=== PATIENT | male | born 1990 | race Caucasian/White ===

== ENCOUNTER 2022-04-24 06:08 | Emergency (ER) | payer BC ==
[~2022-04-24] VITALS: Ht 170.2 cm; Wt 90.7 kg
[2022-04-24 06:15] VITALS: BP_SYST 120
[2022-04-24] MEDS ORDERED: ALBMDI INH (06:31)
[2022-04-24 06:32] VITALS: BP_SYST 118
== END 2022-04-24 06:30 | disposition home or self-care (01) ==
LOC: SED 06:08
DX: J06.9 Acute upper respiratory infection, unspecified (principal); Z79.899 Other long term (current) drug therapy
CPT/HCPCS: 99283

== ENCOUNTER 2023-09-28 11:35 | Emergency (ER) | payer BC, MEDICAID ==
[~2023-09-28] VITALS: Ht 157.5 cm; Wt 76.2 kg
[~2023-09-28 11:35] MED LIST: ALBMDI INH
[2023-09-28 12:20] VITALS: BP_SYST 123; PULSE 85; RESP 17; TEMP 98; O2SAT 99
[2023-09-28 13:44] LABS: BILIRUBIN,URINE NEGATIVE (NEGATIVE); BLOOD, URINE 1+ (NEGATIVE); CLARITY/URINE CLEAR (CLEAR); COLOR,URINE YELLOW (YELLOW); GLUCOSE,URINE NEGATIVE (NEGATIVE); KETONES,URINE NEGATIVE (NEGATIVE); LEUKOCYTE ESTERASE ,URINE TRACE (NEGATIVE); NITRITE, URINE NEGATIVE (NEGATIVE); PROTEIN URINE 2+ (NEGATIVE); UROBILINOGEN,URINE 0.2 (0.2-1.0)
[2023-09-28 13:59] LABS: BACTERIA,URINE MODERATE /HPF (None Seen); MUCUS,URINE 1+ /LPF (None Seen); RBC,URINE 0-3 /HPF (0-3)
== END 2023-09-28 17:12 | disposition left against medical advice (07) ==
LOC: SED 11:35
DX: R05.9 Cough, unspecified (principal); M79.10 Myalgia, unspecified site; Z53.21 Procedure and treatment not carried out due to patient leaving prior to being seen by health care provider
CPT/HCPCS: 81000; 81001; 81015; 87086; 99281

== ENCOUNTER 2024-01-05 14:42 | Emergency (ER) | payer BC, MEDICAID ==
[~2024-01-05] VITALS: Ht 172.7 cm; Wt 86.2 kg
[2024-01-05 14:54] VITALS: BP_SYST 117; PULSE 101; RESP 18; TEMP 98.3; O2SAT 95
[2024-01-05 15:38] LABS: BILIRUBIN,URINE NEGATIVE (NEGATIVE); CLARITY/URINE CLEAR (CLEAR); COLOR,URINE YELLOW (YELLOW); GLUCOSE,URINE NEGATIVE (NEGATIVE); KETONES,URINE NEGATIVE (NEGATIVE); LEUKOCYTE ESTERASE ,URINE NEGATIVE (NEGATIVE); NITRITE, URINE NEGATIVE (NEGATIVE); PH,URINE 5.5 (5.0-8.0); PROTEIN URINE TRACE (NEGATIVE); UROBILINOGEN,URINE 0.2 (0.2-1.0)
[2024-01-05 15:39] LABS: BLOOD, URINE TRACE (NEGATIVE)
[2024-01-05 16:07] LABS: BACTERIA,URINE FEW /HPF (None Seen); WBC,URINE 0-3 /HPF (0-3)
[2024-01-05 17:45] LABS: BASOPHILS % (AUTO) 0.4 % (0.0-2.0); EOSINOPHILS % (AUTO) 0.6 % (0.0-4.0); HEMOGLOBIN 15.1 g/dL (14.0-18.0); LYMPHOCYTES # (AUTO) 1.3 K/uL (1.0-5.5); LYMPHOCYTES % (AUTO) 15.2 % (20.5-51.5); MEAN CORPUSCULAR HEMOGLOBIN 32 pg (27-31); MEAN CORPUSCULAR HGB CONC 35 % (32-36); MEAN CORPUSCULAR VOLUME 90 fL (79.0-98.0); MONOCYTES # (AUTO) 0.5 K/uL (0.0-1.0); MONOCYTES % (AUTO) 5.7 % (1.7-9.3); NEUTROPHILS # (AUTO) 6.8 K/uL (1.8-7.7); NEUTROPHILS % (AUTO) 78.1 % (40.0-70.0); PLATELET COUNT (AUTO) 160 K/uL (130-430); RED BLOOD CELL COUNT(AUTO) 4.77 MIL/uL (4.2-6.2); RED CELL DISTRIBUTION WIDTH 12.2 % (9.0-15.0); WHITE BLOOD COUNT (AUTO) 8.7 K/uL (4.8-10.8)
[2024-01-05] MEDS: FAMOTIDINE PF 20 MG/2 ML VIAL IVP ONE (18:00)
[2024-01-05] MEDS: ONDANSETRON HCL 4 MG/2 ML VIAL IVP ONE (18:00)
[2024-01-05] MEDS: NACL 0.9% 1,000 ML IV ONE (18:00)
[2024-01-05 18:07] LABS: ALBUMIN 4.2 g/dL (3.4-4.8); BILIRUBIN,DIRECT 0.2 mg/dL (0.0-0.3); CALCIUM 9.1 mg/dL (8.4-11.0); CREATININE 1.07 mg/dL (0.55-1.30); POTASSIUM 4.1 mmol/L (3.5-5.1); TOTAL BILIRUBIN 0.6 mg/dL (0.0-1.0); TOTAL PROTEIN, SERUM 7.9 g/dL (6.4-8.3)
[2024-01-05] MEDS: KETOROLAC TROMETHAMINE 30 MG VIAL IVP ONE (18:22)
[2024-01-05 20:17] VITALS: BP_SYST 138; PULSE 88; RESP 18; TEMP 98.8; O2SAT 100
== END 2024-01-05 20:17 | disposition home or self-care (01) ==
LOC: SED 14:42
DX: F10.20 Alcohol dependence, uncomplicated (principal); R11.10 Vomiting, unspecified; R10.9 Unspecified abdominal pain; Z79.899 Other long term (current) drug therapy; Y90.6 Blood alcohol level of 120-199 mg/100 ml
CPT/HCPCS: 99284; 96374; 96375; 96361; 80076; 80048; 81001; 83690; 85025; 36415; 81000; 81015; J3490; J1885; J2405; J7030

== ENCOUNTER 2024-04-16 12:44 | Emergency (ER) | payer BC, MEDICAID ==
[~2024-04-16] VITALS: Ht 170.2 cm; Wt 83.9 kg
[2024-04-16 12:52] VITALS: BP_SYST 127; PULSE 97; RESP 17; TEMP 97.3; O2SAT 99
[2024-04-16 13:43] LABS: EOSINOPHILS # (AUTO) 0.1 K/uL (0.0-0.4); EOSINOPHILS % (AUTO) 1.5 % (0.0-4.0); HEMATOCRIT 44.9 % (36-54); HEMOGLOBIN 15.2 g/dL (14.0-18.0); LYMPHOCYTES # (AUTO) 1.1 K/uL (1.0-5.5); LYMPHOCYTES % (AUTO) 33.7 % (20.5-51.5); MEAN CORPUSCULAR HEMOGLOBIN 31 pg (27-31); MEAN CORPUSCULAR HGB CONC 34 % (32-36); MEAN CORPUSCULAR VOLUME 91 fL (79.0-98.0); MONOCYTES # (AUTO) 0.3 K/uL (0.0-1.0); MONOCYTES % (AUTO) 7.6 % (1.7-9.3); NEUTROPHILS # (AUTO) 1.9 K/uL (1.8-7.7); NEUTROPHILS % (AUTO) 56.2 % (40.0-70.0); PLATELET COUNT (AUTO) 182 K/uL (130-430); RED BLOOD CELL COUNT(AUTO) 4.92 MIL/uL (4.2-6.2); RED CELL DISTRIBUTION WIDTH 12.9 % (9.0-15.0); WHITE BLOOD COUNT (AUTO) 3.3 K/uL (4.8-10.8)
[2024-04-16 13:46] LABS: ANION GAP 9 (5-15); CALCIUM 8.9 mg/dL (8.4-11.0); CARBON DIOXIDE 29 mmol/L (23-29); CHLORIDE 104 mmol/L (98-107); CREATININE 1.06 mg/dL (0.55-1.30); GFR AFRICAN AMERICAN 104 mL/min (>90); GLUCOSE 101 mg/dL (74-106); POTASSIUM 3.6 mmol/L (3.5-5.1); SODIUM SERUM 142 mmol/L (136-145); UREA NITROGEN, BLOOD 17 mg/dL (8-21)
[2024-04-16 13:47] LABS: GFR NON AFRICAN-AMERICAN 86 mL/min (>90)
[2024-04-16 14:15] VITALS: BP_SYST 127; PULSE 97; RESP 17; TEMP 97.3; O2SAT 99
== END 2024-04-16 14:16 | disposition home or self-care (01) ==
LOC: SED 12:44
DX: R07.89 Other chest pain (principal); E78.5 Hyperlipidemia, unspecified; Z79.899 Other long term (current) drug therapy
CPT/HCPCS: 36415; 71045; 80048; 84484; 85025; 93005; 99285